=== PATIENT | male | born 2000 | race Caucasian/White ===

== ENCOUNTER 2019-09-27 10:06 | Day surgery (SDC) | payer MEDICAID, SELFPAY ==
[2019-09-27] MEDS ORDERED: DIPHENHYDRAMINE INJ 50 MG/ML VIAL ONE (11:42)
[2019-09-27] MEDS ORDERED: fentaNYL CITRATE/PF 100 MCG/2 ML AMP ONE (11:46)
[2019-09-27] MEDS ORDERED: MIDAZOLAM HCL 2 MG/2 ML VIAL (VERSED) ONE (11:47)
[2019-09-27] MEDS ORDERED: SIMETHICONE 40 MG/0.6 ML ML ONE (11:48)
[2019-09-27] MEDS ORDERED: MIDAZOLAM HCL 5 MG/5 ML VIAL ONE (12:19)
[2019-09-27 16:04] VITALS: BP_SYST 125
== END 2019-09-27 13:00 | disposition home or self-care (01) ==
LOC: SDS 10:06 → SMU 10:08 → SDS 13:00
PROVIDERS: ATTEND Internal Medicine
DX: Z12.11 Encounter for screening for malignant neoplasm of colon (principal); Z80.0 Family history of malignant neoplasm of digestive organs; Z11.59 Encounter for screening for other viral diseases; K29.50 Unspecified chronic gastritis without bleeding; B96.81 Helicobacter pylori [H. pylori] as the cause of diseases classified elsewhere
CPT/HCPCS: 36415; 43239; 45378; 87081; 88305; 88312; 88313; 99152; 99153; G0378; J1200; J2250; J3010; J3465; J7030; U0003